=== PATIENT | female | born 1980 ===

== ENCOUNTER 2016-09-14 00:58 | Emergency (ER) | payer SELFPAY ==
[2016-09-14 01:15] VITALS: BP 133/87; PULSE 85; TEMP 98.8
--- NOTE | 2016-09-14 02:07 | C.PDOC ---
History Of Present Illness A 36 y/o F c/o left handed pain and swelling after she injected glutathione into her left hand 30 min [employer]. As per pt, they obtained it from the [facility] and it was injected by her . A per , he is not medically trained and is unsure if he he injected it into the vain. Less than 2ml injected, pt states she has pain to the site and up the arm, but has now since resolved. No other complaints noted. Time Seen by Provider: 09/14/16 01:38 Chief Complaint (Nursing): Finger,Hand,&Wrist History Per: Patient History/Exam Limitations: no limitations Onset/Duration Of Symptoms: Mins Current Symptoms Are (Timing): Still Present Severity: Mild Additional History Per: Patient, Family Past Medical History Reviewed: Historical Data, Nursing Documentation, Vital Signs Vital Signs: Last Vital Signs Temp 98.8 F 09/14/16 01:10 Pulse 85 09/14/16 01:10 Resp 20 09/14/16 02:14 BP 133/87 09/14/16 01:10 Pulse Ox 100 09/14/16 02:14 Family History: States: Unknown Family Hx - Social History Hx Alcohol Use: No Hx Substance Use: No - Immunization History Hx Tetanus Toxoid Vaccination: No Hx Influenza Vaccination: No Hx Pneumococcal Vaccination: No Review Of Systems Except As Marked, All Systems Reviewed And Found Negative. Constitutional: Negative for: Fever, Chills Musculoskeletal: Positive for: Hand Pain (Left hand pain and swelling) Physical Exam - Physical Exam Appears: Non-toxic, No Acute Distress Skin: Warm, Dry Head: Atraumatic, Normacephalic Cardiovascular: Rhythm Regular Respiratory: Normal Breath Sounds, No Rales, No Rhonchi, No Wheezing Extremity: Normal ROM, Tenderness (Mild, left hand), Capillary Refill (<2secs), No Deformity, Swelling (Mild, left hand ) Pulses: Left Radial: Normal, Right Radial: Normal Neurological/Psych: Oriented x3, Normal Speech, Normal Cognition, Normal Motor, Normal Sensation, Other (No focal deficit) ED Course And Treatment O2 Sat by Pulse Oximetry: 97 (RA) Pulse Ox Interpretation: Normal Medical Decision Making Medical Decision Making: Impression: A 36 y/o F c/o left handed pain and swelling after she injected gluthathione into her left hand. Plans:+suyspected local infiltration. advise supportive treatment. dvt less likley, but offered blood work, dimer to exclude. pt declines, asking for d/c. Disposition - Disposition Referrals: [facility] [Outside] [facility] [Outside] [facility] [Outside] Disposition: HOME/ ROUTINE Disposition Time: 02:00 Condition: STABLE Additional Instructions: please follow up with your doctor. return to er with worsening symptoms or concerns. Prescriptions: Naproxen [Naprosyn] 500 mg PO BID PRN #14 tablet PRN Reason: Pain, Mild (1-3) Instructions: IV Infiltration (ED) Forms: [employer] (Bel[place]ian) - Clinical Impression Clinical Impression: IV infiltration - Scribe Statement The provider has reviewed the documentation as recorded by the Scribe Tayler singh All medical record entries made by the Scribe were at my direction and personally dictated by me. I have reviewed the chart and agree that the record accurately reflects my personal performance of the history, physical exam, medical decision making, and the department course for this patient. I have also personally directed, reviewed, and agree with the discharge instructions and disposition.
[2016-09-14 02:15] VITALS: RESP 20
[2016-09-14 04:03] VITALS: O2SAT 97
== END 2016-09-14 02:14 | disposition home or self-care (01) ==
LOC: C.ER 00:58
DX: T80.89XA Other complications following infusion, transfusion and therapeutic injection, initial encounter (principal); Y84.8 Other medical procedures as the cause of abnormal reaction of the patient, or of later complication, without mention of misadventure at the time of the procedure; Y92.89 Other specified places as the place of occurrence of the external cause